=== PATIENT | female | born 1945 | race Caucasian/White ===

== ENCOUNTER → 2017-04-14 | Outpatient (CLI) | payer OTHER, MEDICARE ==
[~2017-04-14] MED LIST: DOXEPIN HCL50 MG PO; PREVACID30 MG PO; SYSTANE 0.3-0.1 EACH OP; VENTOLIN17 GM IH; [UNRECOGNIZED DRUG - OTHER] PO
== END | disposition home or self-care (01) ==
LOC: NUC 09:00
DX: R94.02 Abnormal brain scan (principal)
CPT/HCPCS: 78607; A9584

== ENCOUNTER 2018-01-19 08:14 | Emergency (ER) | payer OTHER, MEDICARE ==
[~2018-01-19] VITALS: Ht 172.7 cm; Wt 80.0 kg
[2018-01-19 10:39] VITALS: BP 134/99
== END 2018-01-19 10:47 | disposition home or self-care (01) ==
LOC: EME 08:14
DX: S01.111A Laceration without foreign body of right eyelid and periocular area, initial encounter (principal); W18.30XA Fall on same level, unspecified, initial encounter; Z23 Encounter for immunization; G20 Parkinson's disease; J45.909 Unspecified asthma, uncomplicated; K21.9 Gastro-esophageal reflux disease without esophagitis; H40.9 Unspecified glaucoma
CPT/HCPCS: 70450; 99281; 99283

== ENCOUNTER 2018-02-24 00:19 | Emergency (ER) | payer OTHER, MEDICARE ==
[~2018-02-24] VITALS: Ht 182.9 cm; Wt 77.7 kg
[2018-02-24 00:41] LABS: HEMATOCRIT 34.5 % (36.0-46.0); HEMOGLOBIN 11.3 G/DL (11.9-15.5); MCH 30.2 PG (29.0-34.0); MCHC 32.8 G/DL (30.0-36.0); MCV 92.2 FL (83-99); PLATELET COUNT 219 K/uL (156-360); RBC DIS.WIDTH-CV 13.2 % (11.8-14.6); RBC DIS.WIDTH-SD 45.1 % (39-53); RED BLOOD COUNT 3.74 M/uL (3.80-5.20); WHITE BLOOD COUNT 6.3 K/uL (4.1-10.2)
[2018-02-24 00:50] LABS: CHLORIDE 104 mEq/L (99-109); SODIUM 137 mEq/L (136-147)
[2018-02-24 00:52] LABS: GLUCOSE 97 mg/dL (70-99); TOTAL PROTEIN 6.6 g/dL (6.4-8.3)
[2018-02-24 00:54] LABS: TOTAL BILIRUBIN 0.3 mg/dL (0.0-1.0)
[2018-02-24 00:56] LABS: ALKALINE PHOSPHATASE 94 IU/L (3-129); CREATININE 0.8 mg/dL (0.6-1.3); GFR ESTIMATE (CALCULATED) > 59 mL/min/
[2018-02-24 00:57] LABS: AST (GOT) 12 IU/L (2-34); UREA NITROGEN (BUN) 13 mg/dL (9-23)
[2018-02-24 00:59] LABS: ALT (GPT) 4 IU/L (3-49); LIPASE 8 U/L (1.0-51.0)
[2018-02-24 02:00] LABS: APPEARANCE CLEAR ((CLEAR)); BILIRUBIN NEGATIVE; BLOOD NEGATIVE; COLOR STRAW ((YELLOW)); GLUCOSE (STRIP) NEGATIVE; KETONES NEGATIVE; LEUKOCYTES NEGATIVE; NITRITE NEGATIVE; PROTEIN (STRIP) NEGATIVE; SPECIFIC GRAVITY 1.005 (1.000-1.030); UCUL ADDED? NO; UROBILINOGEN 0.2 MG/DL (0.2-1.0)
[2018-02-24 03:55] VITALS: BP 146/97
== END 2018-02-24 03:57 | disposition home or self-care (01) ==
LOC: EME → EDBD 00:19 → EME 03:57
PROVIDERS: Emergency Medicine
DX: R44.3 Hallucinations, unspecified (principal); G20 Parkinson's disease; K21.9 Gastro-esophageal reflux disease without esophagitis; J45.909 Unspecified asthma, uncomplicated
CPT/HCPCS: 70450; 71046; 80053; 81003; 82140; 83605; 83690; 85027; 99281; 99285

== ENCOUNTER 2018-05-23 12:47 | Emergency (ER) | payer OTHER ==
[~2018-05-23] VITALS: Ht 177.8 cm; Wt 76.1 kg
[2018-05-23 13:27] LABS: HEMOGLOBIN 12.3 G/DL (11.9-15.5); MCH 29.8 PG (29.0-34.0); MCHC 33.2 G/DL (30.0-36.0); MCV 89.6 FL (83-99); PLATELET COUNT 236 K/uL (156-360); RBC DIS.WIDTH-CV 13.6 % (11.8-14.6); RBC DIS.WIDTH-SD 44.4 % (39-53); RED BLOOD COUNT 4.13 M/uL (3.80-5.20); WHITE BLOOD COUNT 9.3 K/uL (4.1-10.2)
[2018-05-23 13:35] LABS: CHLORIDE 107 mEq/L (99-109); POTASSIUM 4.3 mEq/L (3.7-5.4); SODIUM 142 mEq/L (136-147)
[2018-05-23 13:36] LABS: GLUCOSE 100 mg/dL (70-99)
[2018-05-23 13:40] LABS: CREATININE 1.2 mg/dL (0.6-1.3); GFR ESTIMATE (CALCULATED) 47 mL/min/
[2018-05-23 13:41] LABS: UREA NITROGEN (BUN) 24 mg/dL (9-23)
[2018-05-23 15:14] LABS: APPEARANCE CLEAR ((CLEAR)); BILIRUBIN NEGATIVE; BLOOD SMALL; COLOR YELLOW ((YELLOW)); GLUCOSE (STRIP) NEGATIVE; KETONES 5; LEUKOCYTES SMALL; NITRITE NEGATIVE; PROTEIN (STRIP) NEGATIVE; SPECIFIC GRAVITY 1.013 (1.000-1.030); UROBILINOGEN 0.2 MG/DL (0.2-1.0)
[2018-05-23 15:17] LABS: BACTERIA RARE /HPF; EPITHELIAL CELLS RARE /HPF; MUCUS TRACE /LPF; RED BLOOD CELLS 0-5 /HPF (0-5); UCUL ADDED? YES
[2018-05-23] MEDS ORDERED: KEFLEX500 MG PO (16:25)
[2018-05-23 16:34] VITALS: BP 94/65
== END 2018-05-23 16:34 | disposition home or self-care (01) ==
LOC: EME 12:47
PROVIDERS: Emergency Medicine
DX: M25.522 Pain in left elbow (principal); M54.9 Dorsalgia, unspecified; W18.30XA Fall on same level, unspecified, initial encounter; G20 Parkinson's disease; K21.9 Gastro-esophageal reflux disease without esophagitis; J45.909 Unspecified asthma, uncomplicated
CPT/HCPCS: 70450; 71045; 72125; 72128; 72131; 73080; 80048; 81003; 85027; 87086; 93005; 99281; 99285